=== PATIENT | male | born 1980 | race Caucasian/White ===

== ENCOUNTER 2018-02-22 16:35 | Emergency (ER) | payer OTHER ==
[2018-02-22 16:47] VITALS: BP 135/86
--- NOTE | 2018-02-22 17:05 | ED ---
Upper Extremity Pain - HPI Summary HPI Summary: 38M presents with bilateral wrist pain for the past week. He states that he is moving so he is using his wrists more. no specific incident. he states has had numbness and tingling in his hands. right hand is worst than left. he is right handed. he is diabetic. has had this before and had a steroid injection which helped with the pain. no weakness and not dropping objects. no elbow pain. no neck pain. - History of Current Complaint Chief Complaint: UCUpperExtremity Stated Complaint: WRIST AND HAND PAIN Time Seen by Provider: 02/22/18 16:50 - Allergies/Home Medications Allergies/Adverse Reactions: Allergies Allergy/AdvReac Type Severity Reaction Status Date / Time No Known Allergies Allergy Verified 02/22/18 16:47 PMH/Surg Hx/FS Hx/Imm Hx Endocrine/Hematology History: Reports: Hx Diabetes, Hx Thyroid Disease Cardiovascular History: Reports: Hx Hypertension Respiratory History: Denies: Hx Asthma, Hx Chronic Obstructive Pulmonary Disease (COPD) GI History: Denies: Hx Ulcer - Cancer History Cancer Type, Location and Year: THYROID - Surgical History Surgery Procedure, Year, and Place: LEFT ELBOW ORIF WITH HARDWARE. THYROIDECTOMY Infectious Disease History: No Infectious Disease History: Denies: Hx Hepatitis, Hx Human Immunodeficiency Virus (HIV), Traveled Outside the [place] in Last 30 Days - Family History Known Family History: Negative: Diabetes, Blood Disorder - Social History Alcohol Use: Rare Substance Use Type: Reports: None Smoking Status (MU): Never Smoked Tobacco Review of Systems Negative: Fever Negative: Chest Pain Negative: Shortness Of Breath Positive: Myalgia - wrist pain Positive: Paresthesia All Other Systems Reviewed And Are Negative: Yes Physical Exam Triage Information Reviewed: Yes Vital Signs On Initial Exam: Initial Vitals Temp Pulse Resp BP Pulse Ox 98.8 F 98 18 135/86 98 02/22/18 16:44 02/22/18 16:44 02/22/18 16:44 02/22/18 16:44 02/22/18 16:44 Vital Signs Reviewed: Yes Appearance: Positive: Well-Appearing Skin: Positive: Warm, Dry Head/Face: Positive: Normal Head/Face Inspection Eyes: Positive: Normal, Conjunctiva Clear ENT: Positive: Pharynx normal Respiratory/Lung Sounds: Positive: Clear to Auscultation, Breath Sounds Present Cardiovascular: Positive: Normal, RRR Musculoskeletal: Positive: Strength/ROM Intact - wrist, Other - pos tinels, phalens, good welder production line gas strength, sensation grossly intact, capillary refill<2 secs Neurological: Positive: Normal Psychiatric: Positive: Normal Diagnostics - Vital Signs Vital Signs Temp Pulse Resp BP Pulse Ox 02/22/18 16:44 98.8 F 98 18 135/86 98 - Laboratory Lab Statement: Any lab studies that have been ordered have been reviewed, and results considered in the medical decision making process. Course/Dx - Course Course Of Treatment: 38M presents with bilateral wrist pain for the past week. He states that he is moving so he is using his wrists more. no specific incident. he states has had numbness and tingling in his hands. right hand is worst than left. he is right handed. he is diabetic. has had this before and had a steroid injection which helped with the pain. no weakness and not dropping objects. no elbow pain. no neck pain. on exam has full ROM of arms. nuerovascular intact. pos phalens and tinels sign. patient has wrist splints at home. patient will follow up with ortho for potential injections. pateint understand and agrees with plan. - Diagnoses Differential Diagnosis/HQI/PQRI: Positive: Fracture (Closed), Strain, Other - carpel tunnel Provider Diagnoses: Carpal tunnel syndrome on both sides Discharge - Sign-Out/Discharge Documenting (check all that apply): Patient Departure All imaging exams completed and their final reports reviewed: No Studies - Discharge Plan Condition: Good Disposition: HOME Patient Education Materials: Tendinitis (ED) Referrals: Aleyda Vyas MD [Primary Care Provider] - Cuong Nair MD [Medical Doctor] - Additional Instructions: use wrist splints Take ibuprofen or tyenlol every 6 hours Follow up with ortho Return to ED if develop any new or worsening symptoms - Billing Disposition and Condition Condition: GOOD Disposition: Home
== END 2018-02-22 17:18 | disposition home or self-care (01) ==
LOC: UCEAST 16:35
DX: G56.03 Carpal tunnel syndrome, bilateral upper limbs (principal); E11.9 Type 2 diabetes mellitus without complications; I10 Essential (primary) hypertension
CPT/HCPCS: 99211; G0463

== ENCOUNTER 2018-07-28 16:18 | Emergency (ER) | payer OTHER ==
[2018-07-28 16:29] VITALS: BP 133/91
--- NOTE | 2018-07-28 16:47 | UC ---
Head Injury HPI - HPI Summary HPI Summary: The patient is a 43-year-old male that presents here for evaluation of a head injury. He states that head injury occurred about 2 hours ago. He slipped and fell on icy gravel driveway. He struck the back of his head. He doubts any loss of consciousness. He has mild lateral neck pain. He was able to drive without difficulty right after the injury. He denies any nausea or vomiting. He has some minimal trouble focusing. Denies any problems with balance. He denies any photo or phonophobia. He denies any confusion. He had a couple of mild concussions as a child or teenager. - History Of Current Complaint Chief Complaint: UCHeadInjury Stated Complaint: HEAD INJURY Time Seen by Provider: 07/28/18 16:21 Hx Obtained From: Patient Onset/Duration: Sudden Onset, Lasting Hours Severity Currently: Mild Severity Initially: Mild Pain Intensity: 1 Pain Scale Used: 0-10 Numeric Character: Dull Associated Signs And Symptoms: Positive: Neck Pain. Negative: LOC (Time In Secs./Mins/Hrs), LOC Duration Unknown, Confusion, Memory Loss, Seizure, Epistaxis, Dental Malocclusion, Nausea, Vomiting - Allergies/Home Medications Allergies/Adverse Reactions: Allergies Allergy/AdvReac Type Severity Reaction Status Date / Time No Known Allergies Allergy Verified 07/28/18 16:29 PMH/Surg Hx/FS Hx/Imm Hx Previously Healthy: Yes Endocrine History: Diabetes, Dyslipidemia Cardiovascular History: Hypertension - Surgical History Surgical History: Yes Surgery Procedure, Year, and Place: LEFT ELBOW ORIF WITH HARDWARE. THYROIDECTOMY post ca - Family History Known Family History: Positive: Hypertension Negative: Diabetes, Blood Disorder - Social History Alcohol Use: Rare Substance Use Type: None Smoking Status (MU): Never Smoked Tobacco Review of Systems All Other Systems Reviewed And Are Negative: Yes Constitutional: Positive: Negative Skin: Positive: Negative Eyes: Positive: Negative ENT: Positive: Negative Respiratory: Positive: Negative Cardiovascular: Positive: Negative Gastrointestinal: Positive: Negative Genitourinary: Positive: Negative Motor: Positive: Negative Neurovascular: Positive: Negative Musculoskeletal: Positive: Negative Neurological: Positive: Headache - 1/10 Psychological: Positive: Negative Physical Exam Triage Information Reviewed: Yes Appearance: Well-Appearing, No Pain Distress, Well-Nourished Vital Signs: Initial Vital Signs Temp 98.3 F 07/28/18 16:22 Pulse 100 07/28/18 16:22 Resp 16 07/28/18 16:22 BP 133/91 07/28/18 16:22 Pulse Ox 97 07/28/18 16:22 Vital Signs Reviewed: Yes Eyes: Positive: Conjunctiva Clear, Other: - EOMI/PERRL ENT: Positive: Hearing grossly normal, TMs normal, Uvula midline. Negative: Nasal congestion, Nasal drainage, Tonsillar swelling, Tonsillar exudate, Trismus , Muffled voice, Hoarse voice, Sinus tenderness Neck: Positive: Supple, Nontender, No Lymphadenopathy Respiratory: Positive: Lungs clear, Normal breath sounds, No respiratory distress, No accessory muscle use Cardiovascular: Positive: RRR, No Murmur Musculoskeletal: Positive: ROM Intact, No Edema Neurological: Positive: Alert, Other: - GCS 15/15, CNii-XII normal, no pronator drift. - rhomberg, dtrs symmetrical, nl gait Psychological Exam: Normal Skin Exam: Normal Images Head: 1 - tender 2 - tender Head Injury Course/Dx - Differential Dx/Diagnosis Provider Diagnosis: Concussion, Cervical strain, acute Discharge - Sign-Out/Discharge Documenting (check all that apply): Patient Departure All imaging exams completed and their final reports reviewed: No Studies - Discharge Plan Condition: Stable Disposition: HOME Patient Education Materials: Cervical Strain (ED), Concussion (ED) Referrals: Aleyda Vays MD [Primary Care Provider] - If Needed Additional Instructions: rest (both physical and mental) tylenol or advil if needed recheck for new or worsening symptoms - Billing Disposition and Condition Condition: STABLE Disposition: Home
== END 2018-07-28 16:55 | disposition home or self-care (01) ==
LOC: UCEAST 16:18
DX: S06.0X9A Concussion with loss of consciousness of unspecified duration, initial encounter (principal); S16.1XXA Strain of muscle, fascia and tendon at neck level, initial encounter; W00.0XXA Fall on same level due to ice and snow, initial encounter; Y92.412 Parkway as the place of occurrence of the external cause
CPT/HCPCS: 99211; G0463